=== PATIENT | female | born 1980 | race Caucasian/White ===

== ENCOUNTER 2022-08-26 21:25 | Emergency (ER) | payer MEDICAID ==
[~2022-08-26] VITALS: Ht 155 cm; Wt 52.5 kg
[2022-08-26 21:45] VITALS: BP 127/69
[2022-08-26] MEDS ORDERED: HYDROcodone/APAP 5 MG/325 MG (LORTAB) TAB PO ONE (23:00)
--- NOTE | 2022-08-26 23:04 | ED Lower Extremity ---
General Chief Complaint: Lower Extremity Stated Complaint: L ANKLE PAIN Nursing Triage Note: Pt presents with c/o L ankle pain. She reports rolling her ankle and hearing a snap sound. Pt denies another injury. Source: patient Exam Limitations: no limitations History of Present Illness Date Seen by Provider: Aug 26, 2022 Allergies and Home Medications Allergies Coded Allergies: venlafaxine (Verified Adverse Reaction, Mild, Irritability, 08/26/22) Physical Exam Vital Signs Vital Signs - First Documented 08/26/22 21:45 Temp 36.8 Pulse 82 Resp 16 B/P (MAP) 127/69 (88) Capillary Refill : Less Than 3 Seconds Height, Weight, BMI Height: '" Weight: lbs. oz. kg; 21.00 BMI Method: Progress/Results/Core Measures Results/Orders My Orders Orders - KYREE MELO MD Ankle 3 View Left (08/26/22 22:06) Tibia Fibula 2 View Left (08/26/22 22:06) Hydrocodone/Apap 5/325 Tablet (Lortab 5 (08/26/22 23:00) Crutches (08/26/22 23:04) Steplite (08/26/22 23:04) Vital Signs/I&O 08/26/22 21:45 Temp 36.8 Pulse 82 Resp 16 B/P (MAP) 127/69 (88) Blood Pressure Mean: 88 Departure Impression Primary Impression: Closed left ankle fracture Qualified Codes: S82.892A - Other fracture of left lower leg, initial encounter for closed fracture Disposition: 01 HOME, SELF-CARE Condition: Improved Departure-Patient Inst. Decision time for Depature: 23:04 Referrals: LOWELL WINTERS MD, KELSEY R APRN (PCP) Primary Care Physician TON ROCHA MD Patient Instructions: Ankle Fracture ED Add. Discharge Instructions: You may rest your foot on the ground but do not bear body weight on your left foot or walk on your left foot. Elevate your foot toward the level of your heart is much as possible. Use the boot as much as possible. You may remove the boot to shower but do not bear any weight on the left foot when the boot is off. Call the emergency room after 9:00 tomorrow morning to obtain the official rad iologist interpretation of your x-rays. Follow-up with an orthopedic provider as soon as possible for further evaluation and treatment. The healing needs to be monitored by an orthopedic provider. Further treatment such as casting may be recommended. Tonight you may take a single dose of ibuprofen up to 600 mg if needed to control pain while you are waiting to flower buncher or picker your hydrocodone prescription. Use hydrocodone with caution as it may cause drowsiness. Do not drive, operate machinery, or make important decisions while on hydrocodone. Hydrocodone may also cause constipation. You may choose to use a stool softener such as Colace while taking hydrocodone. Return to care if you have worsening symptoms despite following these instructions. All discharge instructions reviewed with patient and/or family. Voiced understanding. Scripts Hydrocodone/Acetaminophen (Hydrocodone-Acetamin 5-325 mg) 5 Mg-325 Mg Tablet 1 TAB PO Q4H PRN for PAIN-MODERATE (5-7), #30 TAB Prov: KYREE MELO MD 08/26/22 KYREE MELO MD Aug 26, 2022 23:04
[2022-08-26] MEDS ORDERED: ACHD5005 PO (23:08)
--- NOTE | 2022-08-27 07:03 | Diagnostic Imaging Report ---
INDICATION: Left ankle injury. Time of Exam: 10:34 PM 3 views of the left ankle demonstrate ankle mortise to be well-maintained. Talar dome is smooth. There is a transversely oriented lucency through the distal fibula consistent with a fracture. No displacement is seen. There is overlying soft tissue swelling about the lateral ankle. IMPRESSION: Nondisplaced distal fibular fracture with overlying soft tissue swelling. Dictated by: Dictated on workstation # [id number]
--- NOTE | 2022-08-27 07:04 | Diagnostic Imaging Report ---
INDICATION: Left ankle injury. Time of Exam: 10:37 PM AP and lateral views of the left tibia and fibula were obtained. Transversely oriented fracture through the distal fibula is noted, nondisplaced. Tibia appears intact. Alignment at the knee and ankle appears normal. IMPRESSION: Nondisplaced distal fibular fracture. Dictated by: Dictated on workstation # [id number]
== END 2022-08-26 23:15 | disposition home or self-care (01) ==
LOC: ER FS 21:29
DX: S82.892A Other fracture of left lower leg, initial encounter for closed fracture (principal); Z28.310 Unvaccinated for COVID-19; X50.1XXA Overexertion from prolonged static or awkward postures, initial encounter
CPT/HCPCS: 73590; 73610

== ENCOUNTER → 2022-09-27 | Outpatient (CLI) | payer MEDICAID ==
[~2022-09-27] MED LIST: ACHD5005 PO
--- NOTE | 2022-09-27 14:06 | Diagnostic Imaging Report ---
INDICATION: Left fibular fracture. TECHNIQUE: Three views of the left ankle were obtained. COMPARISON: 08/26/2022. FINDINGS: The horizontally oriented distal fibular fracture with intra-articular extension has a stable appearance. There has been mild improvement in the adjacent swelling. No lytic or sclerotic lesion is identified. IMPRESSION: Resolving edema and inflammation with incompletely healed lateral malleolar fracture appearing generally stable when compared to the previous exam. Dictated by: Dictated on workstation # [id number]
== END ==
LOC: ORTHO 11:08
PROVIDERS: ATTEND Orthopaedic Surgery
DX: S82.92XA Unspecified fracture of left lower leg, initial encounter for closed fracture (principal); X58.XXXA Exposure to other specified factors, initial encounter
CPT/HCPCS: 73610; 99203